=== PATIENT | male | born 1990 | race Caucasian/White ===

== ENCOUNTER 2020-05-01 22:53 | Emergency (ER) | payer MEDICAID, OTHER ==
[~2020-05-01] VITALS: Ht 167.6 cm; Wt 87.5 kg
[2020-05-01 23:03] VITALS: BP 154/97
== END 2020-05-02 00:45 | disposition home or self-care (01) ==
LOC: ER 22:53
DX: T50.905A Adverse effect of unspecified drugs, medicaments and biological substances, initial encounter (principal); F41.9 Anxiety disorder, unspecified; M54.30 Sciatica, unspecified side; R94.31 Abnormal electrocardiogram [ECG] [EKG]; Z98.890 Other specified postprocedural states; X58.XXXA Exposure to other specified factors, initial encounter
CPT/HCPCS: 93005; 99283